=== PATIENT | female | born 1975 | race Two or more races ===

== ENCOUNTER 2020-03-06 06:55 | Emergency (ER) | payer MEDICAID ==
[~2020-03-06] VITALS: Ht 165.1 cm; Wt 113.4 kg
[2020-03-06 07:19] VITALS: BP 168/109
[2020-03-06] MEDS ORDERED: KETOROLAC TROMETH 60MG/2ML VIAL IM ONE (08:00)
== END 2020-03-06 08:16 | disposition home or self-care (01) ==
LOC: ER 06:55
DX: R10.11 Right upper quadrant pain (principal); Z76.0 Encounter for issue of repeat prescription; Z87.19 Personal history of other diseases of the digestive system
CPT/HCPCS: 96372; 99283; J1885